=== PATIENT | male | born 1985 | race Caucasian/White ===

== ENCOUNTER 2019-01-09 07:02 | Day surgery (SDC) | payer BC ==
[~2019-01-09 07:02] MED LIST: Lactated Ringers 1,000 ML IV SCH; Lidocaine 1%/Sod Bicarbonate in NS 8.4% 1 ML Syringe IDERM PRN; Sodium Chloride 0.9% 10 ML Syringe FLUSH PRN
[2019-01-09] MEDS ORDERED: Propofol 200 MG/20 ML SDV ONE (07:24)
[2019-01-09] MEDS ORDERED: Ondansetron 4 MG/2 ML SDV ONE ×2 (07:24→12:54)
[2019-01-09] MEDS ORDERED: Lidocaine 1% PF 2 ML SDV ONE (07:25)
[2019-01-09] MEDS ORDERED: fentaNYL 250 MCG/5 ML SDV ONE (07:25)
[2019-01-09] MEDS ORDERED: Midazolam 1 MG/ML 2 ML SDV ONE (07:25)
--- NOTE | 2019-01-09 07:29 | PCM.PREANE ---
Preanesthetic Assessment - Anesthesia/Transfusion/Family Hx Anesthesia History: Prior Anesthesia Reaction ("act funny") Family History of Anesthesia Reaction: No Transfusion History: No Prior Transfusion(s) - Review of Systems General: No Symptoms Pulmonary: No Symptoms Cardiovascular: Dyspnea on Exertion Gastrointestinal: No Symptoms Neurological: No Symptoms Other: Reports: None - Physical Assessment NPO Status Date: 01/08/19 NPO Status Time: 00:00 Pulse: 69 O2 Sat by Pulse Oximetry: 99 Respiratory Rate: 16 Blood Pressure: 127/70 Temperature: 36.7 C Height: 1.73 m Weight: 86.636 kg ASA Class: 2 Mental Status: Alert & Oriented x3 Airway Class: Mallampati = 1 Dentition: Reports: Normal Dentition Thyro-Mental Finger Breadths: 3 Mouth Opening Finger Breadths: 3 ROM/Head Extension: Full Lungs: Clear to Auscultation, Normal Respiratory Effort Cardiovascular: Regular Rate, Regular Rhythm - Allergies Allergies/Adverse Reactions: Allergies Allergy/AdvReac Type Severity Reaction Status Date / Time No Known Allergies Allergy Verified 01/08/19 07:11 - Blood Blood Available: No Product(s) Available: None - Anesthesia Plan Pre-Op Medication Ordered: None - Acknowledgements Anesthesia Type Planned: General Anesthesia Pt an Appropriate Candidate for the Planned Anesthesia: Yes Alternatives and Risks of Anesthesia Discussed w Pt/Guardian: Yes Pt/Guardian Understands and Agrees with Anesthesia Plan: Yes PreAnesthesia Questionnaire Cardiovascular History: Reports: Heart Murmur, Other (See Below) Other Cardiovascular History: murmur as child Respiratory History: Reports: None Gastrointestinal History: Reports: GERD CT SCAN TECHNICIAN History: Reports: None Musculoskeletal History: Reports: None Neurological History: Reports: None Psychiatric History: Reports: None Endocrine/Metabolic History: Reports: None Hematologic History: Reports: None Immunologic History: Reports: None Oncologic (Cancer) History: Reports: None Dermatologic History: Reports: None - Past Surgical History Head Surgeries/Procedures: Reports: None HEENT Surgical History: Reports: Adenoidectomy, Tonsillectomy Cardiovascular Surgical History: Reports: None Respiratory Surgical History: Reports: None GI Surgical History: Reports: None Male Surgical History: Reports: Vasectomy Endocrine Surgical History: Reports: None Neurological Surgical History: Reports: None Musculoskeletal Surgical History: Reports: None Oncologic Surgical History: Reports: None Dermatological Surgical History: Reports: None - SUBSTANCE USE Smoking Status *Q: Former Smoker Tobacco Use Within Last Twelve Months: No Second Hand Smoke Exposure: Yes Days Per Week of Alcohol Use: 0 Number of Drinks Per Day: 0 Total Drinks Per Week: 0 Recreational Drug Use History: No - CURRENT (IN HOUSE) MEDS Current Meds: Current Medications Epinephrine HCl (Adrenalin) 3 mg .XX ONETIME ONE Stop: 01/09/19 08:01 Lactated Ringer's (Ringers, Lactated) 1,000 mls @ 125 mls/hr IV ASDIRECTED JEFF Stop: 01/09/19 23:00 Lidocaine/Sodium Bicarbonate (Buffered Lidocaine 1% In Ns 8.4%) 0.25 ml IDERM ONETIME PRN PRN Reason: Prior to IV Start Stop: 01/09/19 18:00 Sodium Chloride (Saline Flush) 10 ml FLUSH ASDIRECTED PRN PRN Reason: Keep Vein Open Stop: 01/09/19 18:00
[2019-01-09] MEDS ORDERED: EPINEPHrine 1 MG/ML SDV ONE ×2 (07:49→07:50)
[2019-01-09] MEDS ORDERED: EPINEPHrine 1 MG/ML 30 ML MDV ONE (08:00)
[2019-01-09] MEDS ORDERED: ceFAZolin 1 GM Vial ONE (08:40)
[2019-01-09] MEDS: Bupivacaine 0.25% 30 ML SDV ONE ×3 (09:07→09:26)
[2019-01-09] MEDS ORDERED: Lactated Ringers 1,000 ML ONE (09:24)
[2019-01-09] MEDS ORDERED: Ketorolac 30 MG/ML SDV ONE (09:25)
[2019-01-09] MEDS ORDERED: HYDROmorphone 0.5 MG/0.5 ML Syringe ONE (09:27)
[2019-01-09] MEDS ORDERED: fentaNYL 100 MCG/2 ML SDV IVPUSH PRN (09:57)
--- NOTE | 2019-01-09 10:00 | PCM.PREANE ---
Preanesthetic Assessment - Anesthesia/Transfusion/Family Hx Anesthesia History: Prior Anesthesia Reaction ("act funny") Family History of Anesthesia Reaction: No Transfusion History: No Prior Transfusion(s) - Review of Systems Other: Reports: None - Physical Assessment NPO Status Date: 01/08/19 NPO Status Time: 00:00 Pulse: 69 O2 Sat by Pulse Oximetry: 99 Respiratory Rate: 16 Blood Pressure: 127/70 Temperature: 36.7 C Vital Signs: Last Vital Signs Temp 36.7 C 01/09/19 07:56 Pulse 69 01/09/19 07:56 Resp 16 01/09/19 07:56 BP 127/70 01/09/19 07:56 Pulse Ox 99 01/09/19 07:56 Height: 1.73 m Weight: 86.636 kg - Allergies Allergies/Adverse Reactions: Allergies Allergy/AdvReac Type Severity Reaction Status Date / Time No Known Allergies Allergy Verified 01/08/19 07:11 - Blood Blood Available: No Product(s) Available: None PreAnesthesia Questionnaire Cardiovascular History: Reports: Heart Murmur, Other (See Below) Other Cardiovascular History: murmur as child Respiratory History: Reports: None Gastrointestinal History: Reports: GERD RN ACUTE DIALYSIS History: Reports: None Musculoskeletal History: Reports: None Neurological History: Reports: None Psychiatric History: Reports: None Endocrine/Metabolic History: Reports: None Hematologic History: Reports: None Immunologic History: Reports: None Oncologic (Cancer) History: Reports: None Dermatologic History: Reports: None - Past Surgical History Head Surgeries/Procedures: Reports: None HEENT Surgical History: Reports: Adenoidectomy, Tonsillectomy Cardiovascular Surgical History: Reports: None Respiratory Surgical History: Reports: None GI Surgical History: Reports: None Male Surgical History: Reports: Vasectomy Endocrine Surgical History: Reports: None Neurological Surgical History: Reports: None Musculoskeletal Surgical History: Reports: None Oncologic Surgical History: Reports: None Dermatological Surgical History: Reports: None - SUBSTANCE USE Smoking Status *Q: Former Smoker Tobacco Use Within Last Twelve Months: No Second Hand Smoke Exposure: Yes Days Per Week of Alcohol Use: 0 Number of Drinks Per Day: 0 Total Drinks Per Week: 0 Recreational Drug Use History: No - CURRENT (IN HOUSE) MEDS Current Meds: Current Medications Fentanyl (Sublimaze) 50 mcg IVPUSH Q5M PRN PRN Reason: Pain Lactated Ringer's (Ringers, Lactated) 1,000 mls @ 125 mls/hr IV ASDIRECTED JEFF Stop: 01/09/19 23:00 Last Admin: 01/09/19 07:35 Dose: 125 mls/hr Lidocaine/Sodium Bicarbonate (Buffered Lidocaine 1% In Ns 8.4%) 0.25 ml IDERM ONETIME PRN PRN Reason: Prior to IV Start Stop: 01/09/19 18:00 Last Admin: 01/09/19 07:34 Dose: 0.25 ml Sodium Chloride (Saline Flush) 10 ml FLUSH ASDIRECTED PRN PRN Reason: Keep Vein Open Stop: 01/09/19 18:00 Discontinued Medications Bupivacaine HCl (Marcaine 0.25%) Confirm Administered Dose 30 ml .ROUTE .STK- MED ONE Stop: 01/09/19 07:50 Last Admin: 01/09/19 09:07 Dose: 30 ml Cefazolin Sodium (Ancef) Confirm Administered Dose 2 gm .ROUTE .STK-MED ONE Stop: 01/09/19 08:41 Epinephrine HCl (Adrenalin) 3 mg .XX ONETIME ONE Stop: 01/09/19 08:01 Epinephrine HCl (Adrenalin) Confirm Administered Dose 1 mg .ROUTE .STK-MED ONE Stop: 01/09/19 07:50 Epinephrine HCl (Adrenalin) Confirm Administered Dose 3 mg .ROUTE .STK-MED ONE Stop: 01/09/19 07:51 Fentanyl (Sublimaze) Confirm Administered Dose 250 mcg .ROUTE .STK-MED ONE Stop: 01/09/19 07:26 Hydromorphone HCl (Dilaudid) Confirm Administered Dose 0.5 mg .ROUTE .STK-MED ONE Stop: 01/09/19 09:28 Lactated Ringer's (Ringers, Lactated) Confirm Administered Dose 1,000 mls @ as directed .ROUTE .STK-MED ONE Stop: 01/09/19 09:25 Ketorolac Tromethamine (Toradol) Confirm Administered Dose 30 mg .ROUTE .STK- MED ONE Stop: 01/09/19 09:26 Lidocaine HCl (Xylocaine-Mpf 1%) Confirm Administered Dose 4 ml .ROUTE .STK-MED ONE Stop: 01/09/19 07:26 Midazolam HCl (Versed 1 Mg/Ml) Confirm Administered Dose 2 mg .ROUTE .STK-MED ONE Stop: 01/09/19 07:26 Ondansetron HCl (Zofran) Confirm Administered Dose 4 mg .ROUTE .STK-MED ONE Stop: 01/09/19 07:25 Propofol (Diprivan 20 Ml) Confirm Administered Dose 200 mg .ROUTE .STK-MED ONE Stop: 01/09/19 07:25
--- NOTE | 2019-01-09 10:01 | PCM.POSTAN ---
POST ANESTHESIA ASSESSMENT - MENTAL STATUS Mental Status: Somnolent - VITAL SIGNS Pulse Rate: 61 SaO2: 100 Resp Rate: 7 Blood Pressure: 119/72 Temperature: 36.7 C - RESPIRATORY Respiratory Status: Respiratory Rate WNL, Airway Patent, O2 Saturation Stable, Supplemental Oxygen - CARDIOVASCULAR CV Status: Pulse Rate WNL, Blood Pressure Stable - GASTROINTESTINAL GI Status: No Symptoms - PAIN Pain Score: 0 - POST OP HYDRATION Hydration Status: Adequate & Stable - OBSERVATIONS Free Text/Narrative:: no anesthesia complications noted
[2019-01-09] MEDS ORDERED: Acetaminophen/HYDROcodone 325-5 MG Tab PO PRN (10:47)
[2019-01-09] MEDS ORDERED: Ondansetron 4 MG/2 ML SDV IVPUSH PRN (12:54)
--- NOTE | 2019-01-13 12:31 | PCM.OPNOTE ---
- General Post-Op/Procedure Note Date of Surgery/Procedure: 01/09/19 Operative Procedure(s): right knee video arthroscopy with partial medial meniscectomy Pre Op Diagnosis: right knee medial meniscus tear Post-Op Diagnosis: Same Anesthesia Technique: General LMA, Local Primary Surgeon: Cory Benites Anesthesia Provider: Henri Perez EBL in mLs: 5 Complications: None Condition: Good
--- NOTE | 2019-01-14 11:40 | OR ---
DATE OF OPERATION: 01/09/2019 SURGEON: Cory Benites MD OPERATION PERFORMED: Right knee video arthroscopy and partial medial meniscectomy. PREOPERATIVE DIAGNOSIS: Right knee medial meniscus tear. POSTOPERATIVE DIAGNOSIS: Right knee medial meniscus tear. ANESTHESIA: General and local. BEARING INSPECTOR: None. ANESTHESIA PROVIDER: Eladio Blair. ESTIMATED BLOOD LOSS: Less than 5 mL. COMPLICATIONS: None. CONDITION: Stable. DESCRIPTION OF PROCEDURE: The patient was identified in the preoperative holding area. Proper site was marked and identified by the surgeon. The patient was taken back to the operating theater, where after adequate anesthesia, the patient's right lower extremity had a nonsterile tourniquet applied and then was placed in a C-clamp rhodes. Left lower extremity was placed in a well leg rhodes. Foot of the bed was then lowered and the right lower extremity was sterilely prepped and draped in the usual sterile fashion. OR time-out was performed. The patient received 2 g of IV Ancef. At this time, right lower extremity was exsanguinated. Tourniquet was insufflated to 250 mmHg. Standard anterior lateral portal incision was made at the inferior pole of the patella. Scope trocar was introduced. 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 Attention was turned to the medial compartment. With the use of a spinal needle, anterior medial portal was created and the meniscus was probed. The patient had a posterior third medial meniscus tear with just a very small portion that was unstable at this time. A partial medial meniscectomy of less than 10% of the posterior horn of the medial meniscus was then performed back to a stable rim. At this time, the rest of the meniscus was intact. The ACL was intact and the notch. There was no signs of chondromalacia of the medial compartment. Lateral part of the compartment showed no signs of meniscus tear and no signs of chondromalacia. After this was completed, then the patient underwent a synovectomy to anterior portion of the fat pad as it did show synovial hypertrophy. Excess saline was then drained. 3-0 nylon sutures were used for closure of the skin. The patient was placed in a sterile soft dressing and sent to PACU in stable condition. MMODAL /[id number]
== END 2019-01-09 14:10 | disposition home or self-care (01) ==
LOC: JD.SDS 07:02
PROVIDERS: ATTEND Orthopaedic Surgery
DX: S83.221A Peripheral tear of medial meniscus, current injury, right knee, initial encounter (principal); M94.261 Chondromalacia, right knee; M67.261 Synovial hypertrophy, not elsewhere classified, right lower leg; Z87.891 Personal history of nicotine dependence; X58.XXXA Exposure to other specified factors, initial encounter
CPT/HCPCS: 29881; J0171; J0690; J1170; J1885; J2001; J2250; J2405; J2704; J3010; J3490; J7120; 01400

== ENCOUNTER 2019-10-02 10:18 | Day surgery (SDC) | payer BC ==
[~2019-10-02 10:18] MED LIST changes: +EPINEPHrine 1 MG/ML 30 ML MDV IRR SCH; +Lidocaine 1% 4 ML ONE; +Midazolam 1 MG/ML 2 ML SDV ONE; +Scopolamine 1.5 MG Transdermal Patch TRDERM PRN; +ceFAZolin 1 GM Vial ONE; +fentaNYL 250 MCG/5 ML SDV ONE
[2019-10-02] MEDS ORDERED: Midazolam 1 MG/ML 2 ML SDV ONE (10:21)
--- NOTE | 2019-10-02 11:04 | PCM.PREANE ---
Preanesthetic Assessment - Anesthesia/Transfusion/Family Hx Anesthesia History: Prior Anesthesia Reaction ("act funny", EULALIA) Family History of Anesthesia Reaction: No Transfusion History: No Prior Transfusion(s) - Review of Systems General: No Symptoms Pulmonary: No Symptoms Cardiovascular: No Symptoms Gastrointestinal: No Symptoms Neurological: No Symptoms Other: Reports: None - Physical Assessment NPO Status Date: 10/01/19 NPO Status Time: 23:45 Vital Signs: Last Vital Signs Temp 36.5 C 10/02/19 10:30 Pulse 74 10/02/19 10:30 Resp 16 10/02/19 10:30 BP 131/80 10/02/19 10:30 Pulse Ox 98 10/02/19 10:30 Height: 1.73 m Weight: 87.543 kg ASA Class: 2 Mental Status: Alert & Oriented x3 Airway Class: Mallampati = 2 Dentition: Reports: Normal Dentition Thyro-Mental Finger Breadths: 3 Mouth Opening Finger Breadths: 3 ROM/Head Extension: Full Lungs: Clear to Auscultation, Normal Respiratory Effort Cardiovascular: Regular Rate (unable to appreciate murmur), Regular Rhythm - Allergies Allergies/Adverse Reactions: Allergies Allergy/AdvReac Type Severity Reaction Status Date / Time No Known Allergies Allergy Verified 10/02/19 08:32 - Acknowledgements Anesthesia Type Planned: General Anesthesia Pt an Appropriate Candidate for the Planned Anesthesia: Yes Alternatives and Risks of Anesthesia Discussed w Pt/Guardian: Yes Pt/Guardian Understands and Agrees with Anesthesia Plan: Yes PreAnesthesia Questionnaire Cardiovascular History: Reports: Heart Murmur, Other (See Below) Other Cardiovascular History: murmur as child Respiratory History: Reports: None Gastrointestinal History: Reports: GERD Genitourinary History: Reports: None ENTERTAINER & COMIC History: Reports: None Musculoskeletal History: Reports: None Neurological History: Reports: None Psychiatric History: Reports: None Endocrine/Metabolic History: Reports: None Hematologic History: Reports: None Immunologic History: Reports: None Oncologic (Cancer) History: Reports: None Dermatologic History: Reports: None - Past Surgical History Head Surgeries/Procedures: Reports: None HEENT Surgical History: Reports: Adenoidectomy, Tonsillectomy Cardiovascular Surgical History: Reports: None Respiratory Surgical History: Reports: None GI Surgical History: Reports: None Female Surgical History: Reports: None Male Surgical History: Reports: Vasectomy Endocrine Surgical History: Reports: None Neurological Surgical History: Reports: None Musculoskeletal Surgical History: Reports: Arthroscopic Knee Oncologic Surgical History: Reports: None Dermatological Surgical History: Reports: None - SUBSTANCE USE Smoking Status *Q: Former Smoker Recreational Drug Use History: No - HOME MEDS Home Medications: Home Meds Acetaminophen/HYDROcodone [[place] 325-5 MG] 1 - 2 tab PO Q6H PRN #20 tablet 10/02 [Rx] Aspirin 325 mg PO BID #84 tab 10/02/19 [Rx] Omeprazole Magnesium [Prilosec Otc] 20 mg PO DAILY 10/02/19 [History] - CURRENT (IN HOUSE) MEDS Current Meds: Current Medications Epinephrine HCl (Adrenalin) 3 mg IRR ONETIME JEFF Stop: 10/02/19 18:00 Lactated Ringer's (Ringers, Lactated) 1,000 mls @ 125 mls/hr IV ASDIRECTED JEFF Stop: 10/02/19 23:00 Last Admin: 10/02/19 10:40 Dose: 125 mls/hr Lidocaine/Sodium Bicarbonate (Buffered Lidocaine 1% In Ns 8.4%) 0.25 ml IDERM ONETIME PRN PRN Reason: Prior to IV Start Stop: 10/02/19 18:00 Last Admin: 10/02/19 10:39 Dose: 0.25 ml Scopolamine (Transderm-Scop) 1.5 mg TRDERM ONETIME PRN PRN Reason: PONV Stop: 10/02/19 15:00 Last Admin: 10/02/19 10:29 Dose: 1.5 mg Sodium Chloride (Saline Flush) 10 ml FLUSH ASDIRECTED PRN PRN Reason: Keep Vein Open Stop: 10/02/19 18:00 Discontinued Medications Cefazolin Sodium (Ancef) Confirm Administered Dose 2 gm .ROUTE .STK-MED ONE Stop: 10/02/19 10:19 Fentanyl (Sublimaze) Confirm Administered Dose 250 mcg .ROUTE .STK-MED ONE Stop: 10/02/19 10:19 Lidocaine HCl (Xylocaine-Mpf 1%) Confirm Administered Dose 4 mls @ as directed .ROUTE .STK-MED ONE Stop: 10/02/19 10:18 Midazolam HCl (Versed 1 Mg/Ml) Confirm Administered Dose 2 mg .ROUTE .STK-MED ONE Stop: 10/02/19 10:18 Midazolam HCl (Versed 1 Mg/Ml) Confirm Administered Dose 2 mg .ROUTE .[facility] ONE Stop: 10/02/19 10:22
[2019-10-02] MEDS ORDERED: Propofol 200 MG/20 ML SDV ONE (11:28)
[2019-10-02] MEDS ORDERED: Rocuronium 50 MG/5 ML Vial ONE (12:11)
[2019-10-02] MEDS ORDERED: Ketorolac 30 MG/ML SDV ONE (12:19)
[2019-10-02] MEDS ORDERED: Ondansetron 4 MG/2 ML SDV ONE (12:19)
[2019-10-02] MEDS ORDERED: Lactated Ringers 1,000 ML ONE (12:49)
--- NOTE | 2019-10-02 13:07 | PCM.POSTAN ---
POST ANESTHESIA ASSESSMENT - MENTAL STATUS Mental Status: Alert, Oriented - VITAL SIGNS Vital Signs: Last Vital Signs Temp 36.5 C 10/02/19 10:30 Pulse 74 10/02/19 10:30 Resp 16 10/02/19 10:30 BP 131/80 10/02/19 10:30 Pulse Ox 98 10/02/19 10:30 - RESPIRATORY Respiratory Status: Respiratory Rate WNL, Airway Patent, O2 Saturation Stable - CARDIOVASCULAR CV Status: Pulse Rate WNL, Blood Pressure Stable - GASTROINTESTINAL GI Status: No Symptoms - PAIN Pain Score: 0 - POST OP HYDRATION Hydration Status: Adequate & Stable
[2019-10-02] MEDS ORDERED: fentaNYL 100 MCG/2 ML SDV IVPUSH PRN (13:08)
[2019-10-02] MEDS ORDERED: Ondansetron 4 MG/2 ML SDV IVPUSH PRN (13:08)
--- NOTE | 2019-10-02 13:34 | PCM48HPAN ---
Post Anesthesia Note - EVALUATION WITHIN 48HRS OF ANESTHETIC Vital Signs in Normal Range: Yes Patient Participated in Evaluation: Yes Respiratory Function Stable: Yes Airway Patent: Yes Cardiovascular Function Stable: Yes Hydration Status Stable: Yes Pain Control Satisfactory: Yes Nausea and Vomiting Control Satisfactory: Yes Mental Status Recovered: Yes Vital Signs: Last Vital Signs Temp 36.1 C 10/02/19 13:15 Pulse 49 L 10/02/19 13:15 Resp 8 L 10/02/19 13:30 BP 120/72 10/02/19 13:30 Pulse Ox 100 10/02/19 13:32
[2019-10-02] MEDS ORDERED: Acetaminophen/HYDROcodone 325-5 MG Tab PO PRN ×2 (13:51→13:54)
--- NOTE | 2019-10-08 14:36 | PCM.OPNOTE ---
- General Post-Op/Procedure Note Date of Surgery/Procedure: 10/02/19 Operative Procedure(s): left knee video arthroscopy with partial medial meniscectomy Pre Op Diagnosis: left knee medial meniscus tear Post-Op Diagnosis: Same Anesthesia Technique: General LMA, Local Primary Surgeon: Cory Benites Anesthesia Provider: Monica Sarkar Composition Weatherboard Installer: Emili Carrasco in mLs: 5 Complications: None Condition: Good
--- NOTE | 2019-10-08 14:56 | OR ---
DATE OF OPERATION: 10/02/2019 SURGEON: Cory Benites MD OPERATION PERFORMED: Left knee video arthroscopy with partial medial meniscectomy. PREOPERATIVE DIAGNOSIS: Left knee medial meniscus tear. POSTOPERATIVE DIAGNOSIS: Left knee medial meniscus tear. ANESTHESIA: General LMA with local. ANESTHESIA PROVIDER: Monica aSrkar CRNA. COAT OPERATOR: Emili Carrasco PA-C. ESTIMATED BLOOD LOSS: Less than 5 mL. COMPLICATIONS: None. CONDITION: Stable. DESCRIPTION OF PROCEDURE: The patient was identified in the preoperative holding area. Proper site was marked and identified by surgeon. The patient was taken back to the operating theater, where after adequate anesthesia, the patient's right lower extremity was placed in a well leg rhodes. Left lower extremity had a nonsterile tourniquet applied and then was placed in a C-clamp rhodes. Foot of the bed was then lowered. Left lower extremity was then sterilely prepped and draped in the usual sterile fashion. OR time-out was performed. The patient received 2 g of IV Ancef. At this time, left lower extremity was exsanguinated. Tourniquet was insufflated to 250 mmHg. Standard anterior lateral portal incision was made. Scope trocar was introduced to the knee joint. At this time, the patient was noted to have no chondromalacia of the patella. Attention was turned to the medial compartment. At this time, with the use of spinal needle, anterior medial portal was then created. The patient was noted to have a significant degenerative tear of the posterior third of the medial meniscus. At this time, a partial medial meniscectomy was performed to the posterior 3rd, roughly 40% of it was taken back to a stable rim saving as much of the meniscus as we could. The patient had very minimal chondromalacia of the medial compartment. The ACL was intact in the notch. Lateral compartment showed no meniscal tear and no chondromalacia. At this time, excess saline was drained from the knee. 3-0 nylon suture was used for closure of the skin. The patient had a sterile soft dressing applied and sent to the PACU in stable condition. MMODAL /[id number]
== END 2019-10-02 15:30 | disposition home or self-care (01) ==
LOC: JD.SDS 10:18
PROVIDERS: ATTEND Orthopaedic Surgery
DX: S83.242A Other tear of medial meniscus, current injury, left knee, initial encounter (principal); M94.262 Chondromalacia, left knee; K21.9 Gastro-esophageal reflux disease without esophagitis; Z87.891 Personal history of nicotine dependence
CPT/HCPCS: 29881; A9270; J0690; J1885; J2001; J2250; J2405; J2704; J3010; J7120; 01400